=== PATIENT | female | born 1995 | race African-American/Black ===

== ENCOUNTER 2024-03-25 21:28 | Emergency (ER) | payer BC | END 2024-03-25 22:50 | disposition home or self-care (01) | LOC: CSHERS 21:28 | DX: S60.221A Contusion of right hand, initial encounter (principal); F17.210 Nicotine dependence, cigarettes, uncomplicated; X58.XXXA Exposure to other specified factors, initial encounter | CPT/HCPCS: 99283 ==

== ENCOUNTER 2024-05-19 11:35 | Emergency (ER) | payer BC ==
[2024-05-19] MEDS ORDERED: Ondansetron ODT 4 MG TAB ONE (11:52)
[2024-05-19 12:37] LABS: Pregnancy Test - Urine (BHCG) Negative (Negative); Pregu Control Background? CLEAR/WHITE (CLR/WHITE); Pregu Control Bar Appear? YES (CONTROL BAR)
== END 2024-05-19 13:30 | disposition home or self-care (01) ==
LOC: CSHERS 11:35
DX: J06.9 Acute upper respiratory infection, unspecified (principal); R11.2 Nausea with vomiting, unspecified; F17.210 Nicotine dependence, cigarettes, uncomplicated
CPT/HCPCS: 81025; 87428; 99284; Q0162